=== PATIENT | female | born 1955 | race Caucasian/White ===

== ENCOUNTER → 2021-09-12 09:07 | Outpatient (CLI) | payer OTHER, SELFPAY | PROVIDERS: Family Provider Family Medicine Geriatric Medicine; PCP Internal Medicine; Referring Provider Dermatology MOHS-Micrographic Surgery; Visit Provider Family Medicine | DX: L73.2 Hidradenitis suppurativa (principal); S41.101A Unspecified open wound of right upper arm, initial encounter; S41.102A Unspecified open wound of left upper arm, initial encounter; S31.502A Unspecified open wound of unspecified external genital organs, female, initial encounter; E11.65 Type 2 diabetes mellitus with hyperglycemia; Z68.42 Body mass index [BMI] 45.0-49.9, adult; B96.4 Proteus (mirabilis) (morganii) as the cause of diseases classified elsewhere; E11.628 Type 2 diabetes mellitus with other skin complications; E66.9 Obesity, unspecified; Z79.4 Long term (current) use of insulin; Z79.84 Long term (current) use of oral hypoglycemic drugs | CPT/HCPCS: 99204; 99213 ==

== ENCOUNTER → 2021-10-13 09:28 | Outpatient (CLI) | payer OTHER, SELFPAY | PROVIDERS: Family Provider Family Medicine Geriatric Medicine; PCP Internal Medicine; Referring Provider Internal Medicine; Visit Provider Family Medicine | DX: E11.628 Type 2 diabetes mellitus with other skin complications (principal); L73.2 Hidradenitis suppurativa; E11.40 Type 2 diabetes mellitus with diabetic neuropathy, unspecified; E11.65 Type 2 diabetes mellitus with hyperglycemia; Z68.42 Body mass index [BMI] 45.0-49.9, adult | CPT/HCPCS: 99213 ==

== ENCOUNTER → 2021-10-25 14:38 | Outpatient (CLI) | payer OTHER, SELFPAY | PROVIDERS: Family Provider Family Medicine Geriatric Medicine; PCP Internal Medicine; Referring Provider Physician Assistant; Visit Provider Family Medicine | DX: S41.101A Unspecified open wound of right upper arm, initial encounter (principal); S41.102A Unspecified open wound of left upper arm, initial encounter; L73.2 Hidradenitis suppurativa; L08.89 Other specified local infections of the skin and subcutaneous tissue; E11.65 Type 2 diabetes mellitus with hyperglycemia; Z68.42 Body mass index [BMI] 45.0-49.9, adult | CPT/HCPCS: 11042; 87070; 87075; 87205; 99213 ==

== ENCOUNTER → 2021-11-15 13:01 | Outpatient (CLI) | payer OTHER, SELFPAY | PROVIDERS: Family Provider Family Medicine Geriatric Medicine; PCP Internal Medicine; Referring Provider Physician Assistant; Visit Provider Family Medicine | DX: L73.2 Hidradenitis suppurativa (principal); S41.102A Unspecified open wound of left upper arm, initial encounter; L08.89 Other specified local infections of the skin and subcutaneous tissue; E11.628 Type 2 diabetes mellitus with other skin complications; Z68.42 Body mass index [BMI] 45.0-49.9, adult | CPT/HCPCS: 11042; 87070; 87075; 87077; 87147; 87186; 87205; 99213 ==

== ENCOUNTER → 2021-11-30 08:24 | Outpatient (CLI) | payer OTHER, SELFPAY | PROVIDERS: Family Provider Family Medicine Geriatric Medicine; PCP Internal Medicine; Referring Provider Family Medicine; Visit Provider Family Medicine | DX: I25.10 Atherosclerotic heart disease of native coronary artery without angina pectoris (principal) | CPT/HCPCS: 93005 ==

== ENCOUNTER → 2021-12-06 12:44 | Outpatient (CLI) | payer OTHER, SELFPAY | PROVIDERS: Family Provider Family Medicine Geriatric Medicine; PCP Internal Medicine; Referring Provider Physician Assistant; Visit Provider Family Medicine | DX: L73.2 Hidradenitis suppurativa (principal); E11.628 Type 2 diabetes mellitus with other skin complications; Z68.42 Body mass index [BMI] 45.0-49.9, adult | CPT/HCPCS: 99213; 99214 ==

== ENCOUNTER → 2021-12-27 15:10 | Outpatient (CLI) | payer OTHER, SELFPAY | PROVIDERS: Family Provider Family Medicine Geriatric Medicine; PCP Internal Medicine; Referring Provider Internal Medicine; Visit Provider Surgery | DX: L73.2 Hidradenitis suppurativa (principal); S41.102A Unspecified open wound of left upper arm, initial encounter; S41.101A Unspecified open wound of right upper arm, initial encounter; E11.628 Type 2 diabetes mellitus with other skin complications; L08.89 Other specified local infections of the skin and subcutaneous tissue; Z68.42 Body mass index [BMI] 45.0-49.9, adult | CPT/HCPCS: 99213 ==